=== PATIENT | male | born 2000 | race Caucasian/White ===

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

== ENCOUNTER 2020-09-26 12:21 | Emergency (ER) | payer MEDICARE, OTHER ==
[~2020-09-26 12:21] MED LIST: 8 HOUR650 MG PO; ABILIFY5 MG PO; BENTYL10 MG PO; LOVAZA1 GM PO; MEDROL 4MG DOSEP4 MG PO; MIRALAX17 GM PO; PRILOSEC20 MG PO; SINGULAIR10 MG PO; TRILEPTAL150 MG PO; VITAMIN B-650 MG PO; ZOFRAN4 M1 PO; ZOFRAN4 MG PO; ZOLOFT25 MG PO
[2020-09-26 14:56] LABS: BASOPHIL 0.2 % (0-2); EOSINOPHIL 0.1 % (0-5); HCT 45.4 % (42.0-52.0); HGB 15.4 g/dl (13.2-18.0); LYMPHOCYTE 12.2 % (15-48); MCH 30.1 pg (25.0-31.0); MCHC 33.9 g/dL (32.0-36.0); MCV 88.8 fL (78.0-100.0); MONOCYTE 7.9 % (0-12); MPV 10.4 fL (6.0-9.5); NEUTROPHIL 78.7 % (41-80); NRBC 0; PLT 300 K/uL (150-400); RBC 5.11 M/uL (4.70-6.00); RDW 13.1 % (11.5-14.0); WBC 18.4 K/uL (4.0-10.5)
[2020-09-26 15:20] LABS: ALBUMIN 4.4 g/dL (3.4-5.0); BILIRUBIN - TOTAL 0.2 mg/dL (0.2-1.0); BUN/CREAT RATIO (CALC) 12.9 RATIO; CREATININE 0.62 mg/dL (0.67-1.17); GLOBULIN (CALCULATION) 3.1 g/dL; POTASSIUM 3.4 mmol/L (3.5-5.1); TOTAL PROTEIN 7.5 g/dL (6.4-8.2)
[2020-09-26] MEDS ORDERED: DIFLUCAN 100MG100 MG PO (16:26)
[2020-09-26] MEDS ORDERED: CARAFATE S500 MG/TSP PO (16:26)
== END 2020-09-26 17:15 | disposition home or self-care (01) ==
LOC: FER 12:21
PROVIDERS: Emergency Medicine
DX: B37.81 Candidal esophagitis (principal); F17.200 Nicotine dependence, unspecified, uncomplicated
CPT/HCPCS: 36415; 70491; 80053; 85025; Q9967

== ENCOUNTER 2020-12-28 15:58 | Emergency (ER) | payer MEDICARE, OTHER ==
[~2020-12-28 15:58] MED LIST changes: +CARAFATE S500 MG/TSP PO; +DIFLUCAN 100MG100 MG PO
== END 2020-12-28 18:21 | disposition home or self-care (01) ==
LOC: FER 15:58
DX: K59.00 Constipation, unspecified (principal); Z90.49 Acquired absence of other specified parts of digestive tract; Z88.5 Allergy status to narcotic agent; Z88.6 Allergy status to analgesic agent; Z88.8 Allergy status to other drugs, medicaments and biological substances
CPT/HCPCS: 74018

== ENCOUNTER 2021-03-18 21:58 | Emergency (ER) | payer MEDICARE, OTHER ==
[2021-03-19 00:24] LABS: BILIRUBIN NEGATIVE (NEGATIVE); BLOOD NEGATIVE Ery/uL (NEGATIVE); CLARITY CLEAR (CLEAR); COLOR YELLOW (YELLOW); GLUCOSE (U) NORMAL (NORMAL); LEUKOCYTES NEGATIVE Leu/uL (NEGATIVE); NITRITE POSITIVE (NEGATIVE); PROTEIN NEGATIVE (NEGATIVE); SPECIFIC GRAVITY <=1.005 (1.001-1.030)
[2021-03-19 00:33] LABS: BACTERIA TRACE; URINARY WBC RARE
== END 2021-03-19 01:16 | disposition home or self-care (01) ==
LOC: FER 21:58
PROVIDERS: Emergency Medicine
DX: R30.0 Dysuria (principal); Z88.6 Allergy status to analgesic agent; Z88.8 Allergy status to other drugs, medicaments and biological substances
CPT/HCPCS: 81001; 99283

== ENCOUNTER 2021-06-06 14:41 | Emergency (ER) | payer MEDICARE, OTHER ==
[2021-06-06] MEDS ORDERED: PREDNISONE 20MG20 MG PO (17:33)
[2021-06-06] MEDS ORDERED: KEFLEX250 MG PO (17:33)
== END 2021-06-06 19:57 | disposition home or self-care (01) ==
LOC: FER 14:41
DX: T63.441A Toxic effect of venom of bees, accidental (unintentional), initial encounter (principal); Z88.6 Allergy status to analgesic agent; Z88.8 Allergy status to other drugs, medicaments and biological substances
CPT/HCPCS: 99282; J7512

== ENCOUNTER 2021-11-12 22:06 | Emergency (ER) | payer MEDICARE, OTHER ==
[~2021-11-12 22:06] MED LIST changes: +KEFLEX250 MG PO; +PREDNISONE 20MG20 MG PO
[2021-11-12 23:58] LABS: BASOPHIL 0.8 % (0-2); EOSINOPHIL 4.7 % (0-5); HCT 44.5 % (42.0-52.0); HGB 15.1 g/dl (13.2-18.0); LYMPHOCYTE 27.6 % (15-48); MCH 29.6 pg (25.0-31.0); MCHC 33.9 g/dL (32.0-36.0); MCV 87.3 fL (78.0-100.0); MONOCYTE 9.8 % (0-12); MPV 10.2 fL (6.0-9.5); NEUTROPHIL 56.7 % (41-80); NRBC 0; PLT 270 K/uL (150-400); RDW 13.1 % (11.5-14.0); WBC 11.1 K/uL (4.0-10.5)
[2021-11-13 00:16] LABS: ALBUMIN 4.3 g/dL (3.4-5.0); BILIRUBIN - TOTAL 0.2 mg/dL (0.2-1.0); BUN/CREAT RATIO (CALC) 10.4 RATIO; CREATININE 0.77 mg/dL (0.67-1.17); GLOBULIN (CALCULATION) 2.9 g/dL; POTASSIUM 3.6 mmol/L (3.5-5.1); TOTAL PROTEIN 7.2 g/dL (6.4-8.2)
== END 2021-11-13 02:06 | disposition home or self-care (01) ==
LOC: FER 22:06
PROVIDERS: Emergency Medicine
DX: K57.30 Diverticulosis of large intestine without perforation or abscess without bleeding (principal); Z88.8 Allergy status to other drugs, medicaments and biological substances; Z88.6 Allergy status to analgesic agent
CPT/HCPCS: 36415; 80053; 83690; 85025; J2405; J7030; Q9967

== ENCOUNTER 2022-01-21 15:52 | Emergency (ER) | payer MEDICARE, OTHER ==
[2022-01-21 19:10] LABS: BASOPHIL 0.7 % (0-2); EOSINOPHIL 1.1 % (0-5); HCT 48.3 % (42.0-52.0); HGB 16.6 g/dl (13.2-18.0); LYMPHOCYTE 16.6 % (15-48); MCH 30.1 pg (25.0-31.0); MCHC 34.4 g/dL (32.0-36.0); MCV 87.7 fL (78.0-100.0); MONOCYTE 5.9 % (0-12); MPV 10.2 fL (6.0-9.5); NEUTROPHIL 75.3 % (41-80); NRBC 0; PLT 274 K/uL (150-400); RBC 5.51 M/uL (4.70-6.00); RDW 12.8 % (11.5-14.0); WBC 11.4 K/uL (4.0-10.5)
[2022-01-21 19:18] LABS: MONOSPOT (MONONUCLEOSIS) NEGATIVE (NEGATIVE)
== END 2022-01-21 20:16 | disposition home or self-care (01) ==
LOC: FER 15:52
PROVIDERS: Physician Assistant
DX: R59.0 Localized enlarged lymph nodes (principal); Z28.310 Unvaccinated for COVID-19; Z88.5 Allergy status to narcotic agent; Z88.6 Allergy status to analgesic agent; Z88.8 Allergy status to other drugs, medicaments and biological substances
CPT/HCPCS: 36415; 71046; 84145; 85025; 86308